=== PATIENT | male | born 1995 | race Native Hawaiian/Other Pacific Islander ===

== ENCOUNTER 2018-05-04 21:14 | Outpatient (CLI) | payer OTHER | END 2018-05-04 21:25 | disposition short-term general hospital (02) | LOC: AMB 21:14 | DX: G40.89 Other seizures (principal) | CPT/HCPCS: A0425; A0427 ==

== ENCOUNTER 2018-05-04 21:40 | Emergency (ER) | payer OTHER ==
[~2018-05-04] VITALS: Ht 180.3 cm; Wt 68.0 kg
[2018-05-04 22:38] LABS: PLATELET COUNT 193 K/uL (142-355)
[2018-05-04 22:42] LABS: POTASSIUM 3.8 mmol/L (3.6-5.2)
[2018-05-04 23:20] VITALS: BP 119/66; TEMP 98.4
== END 2018-05-04 23:34 | disposition home or self-care (01) ==
LOC: ED 21:40
PROVIDERS: Family Medicine
DX: R56.9 Unspecified convulsions (principal); S00.212A Abrasion of left eyelid and periocular area, initial encounter
CPT/HCPCS: 80053; 80185; 80307; 85027; 99283

== ENCOUNTER 2020-06-29 12:24 | Emergency (ER) | payer OTHER ==
[~2020-06-29] VITALS: Ht 180.3 cm; Wt 79.4 kg
[2020-06-29 12:49] VITALS: TEMP 98.9
[2020-06-29 13:45] LABS: PLATELET COUNT 159 K/uL (142-355)
[2020-06-29 13:59] LABS: POTASSIUM 4.2 mmol/L (3.6-5.2)
[2020-06-29 16:04] VITALS: BP 122/74
== END 2020-06-29 16:04 | disposition home or self-care (01) ==
LOC: ED 12:24
PROVIDERS: Family Medicine
DX: J40 Bronchitis, not specified as acute or chronic (principal); J06.9 Acute upper respiratory infection, unspecified; R05 Cough; Z20.828 Contact with and (suspected) exposure to other viral communicable diseases; F17.210 Nicotine dependence, cigarettes, uncomplicated
CPT/HCPCS: 80053; 85027; 87502; 87635; 87651; 94664; 96372; 99283; J2930; U0003